=== PATIENT | female | born 1935 | race Caucasian/White ===

== ENCOUNTER 2016-05-07 | Outpatient (CLI) | payer MEDICARE, OTHER | END 2016-05-07 17:35 | disposition EMS.NT ==

== ENCOUNTER 2017-06-26 10:57 | Outpatient (CLI) | payer MEDICARE, OTHER | END 2017-06-26 10:58 | disposition home or self-care (01) | LOC: DI 10:57 | PROVIDERS: ATTEND Physician Assistant | DX: R01.1 Cardiac murmur, unspecified (principal) | CPT/HCPCS: 93306 ==

== ENCOUNTER 2018-04-18 10:28 | Outpatient (CLI) | payer MEDICARE, OTHER ==
--- NOTE | 2018-05-02 08:54 | Mammography Report ---
Reason: SCREENING MAMMO Procedure Date: 04/18/2018 Accession Number: [id number] / [id number] Procedure: BERT - Screening Mammo w/Steve CPT Code: FULL RESULT: EXAM: Screening Mammo w/Steve DATE: 04/18/2018 11:12 AM CLINICAL HISTORY: Screening encounter. Personal history of left breast cancer status post lumpectomy and radiation in 2001. TECHNIQUE: Bilateral CC and MLO views were obtained. COMPARISON: None were made available. FINDINGS: The breasts demonstrate heterogeneously dense fibroglandular parenchyma bilaterally. There are postsurgical and posttreatment changes in the left breast. No suspicious masses, clustered microcalcifications, or regions of architectural distortion are identified. IMPRESSION: Benign findings RECOMMENDATION: Routine annual screening unless otherwise clinically indicated. BIRADS CATEGORY 2: Benign findings STANDARD QUALIFYING STATEMENTS: 1. This examination was not reviewed with the aid of Computer-Aided Detection (CAD). 2. A negative or benign imaging report should not preclude biopsy if clinically suspicious findings are present. 3. Dense breasts may obscure an underlying neoplasm. 4. This examination was reviewed with the aid of 3D breast imaging (tomosynthesis).
== END 2018-04-18 10:29 | disposition home or self-care (01) ==
LOC: DI 10:28
PROVIDERS: ATTEND Physician Assistant
DX: Z12.31 Encounter for screening mammogram for malignant neoplasm of breast (principal); Z85.3 Personal history of malignant neoplasm of breast
CPT/HCPCS: 77063; 77067

== ENCOUNTER 2018-10-11 13:51 | Outpatient (CLI) | payer MEDICARE, OTHER ==
--- NOTE | 2018-10-12 15:17 | XRAY Report ---
Reason: ACUTE BRONCHITIS, UNSPECIFIED Procedure Date: 10/12/2018 Accession Number: [id number] / [id number] Procedure: XR - Chest 2 View X-Ray CPT Code: 33784 FULL RESULT: EXAM: CHEST RADIOGRAPHY EXAM DATE: 10/12/2018 02:23 PM. CLINICAL HISTORY: Coughing and wheezing for 2 weeks, bronchitis COMPARISON: 09/04/2014 10:31 AM CHEST W/ 01/22/2013 2:38 PM. TECHNIQUE: 2 views. FINDINGS: Lungs/Pleura: Calcified granuloma in the right lower lobe. Probable atelectasis at the left lung base. Lungs are otherwise clear. Mediastinum: Heart and mediastinal contours are unremarkable. Other: Postsurgical changes in the left breast. IMPRESSION: Probable atelectasis at the left lung base, otherwise no active disease seen in the chest. RADIA
== END 2018-10-11 13:52 | disposition home or self-care (01) ==
LOC: DI 13:51
PROVIDERS: ATTEND Nurse Practitioner Family
DX: J20.9 Acute bronchitis, unspecified (principal)
CPT/HCPCS: 71046

== ENCOUNTER 2018-11-14 13:13 | Outpatient (CLI) | payer MEDICARE, OTHER ==
--- NOTE | 2018-11-15 10:12 | XRAY Report ---
Reason: ACUTE BRONCHITIS Procedure Date: 11/14/2018 Accession Number: [id number] / [id number] Procedure: XRS - Chest 2 View X-Ray CPT Code: 83722 FULL RESULT: EXAM: CHEST RADIOGRAPHY EXAM DATE: 11/14/2018 01:30 PM. CLINICAL HISTORY: ACUTE BRONCHITIS. COMPARISON: CHEST 2 VIEW 10/12/2018 2:12 PM. TECHNIQUE: 2 views. FINDINGS: Lungs/Pleura: No focal opacities evident. No pleural effusion. No pneumothorax. Normal volumes. Mediastinum: Heart and mediastinal contours are unremarkable. Other: Previous left breast surgery. IMPRESSION: No acute process seen in the chest. RADIA
== END 2018-11-14 13:14 | disposition home or self-care (01) ==
LOC: DI.S 13:13
PROVIDERS: ATTEND Nurse Practitioner Family
DX: J20.9 Acute bronchitis, unspecified (principal)
CPT/HCPCS: 71046

== ENCOUNTER 2020-02-05 12:32 | Outpatient (CLI) | payer MEDICARE, OTHER ==
[2020-02-05] MEDS ORDERED: REGADENOSON 0.4 MG/5 ML SYRINGE IVP ONE ×2 (14:44→16:17)
[2020-02-05] MEDS ORDERED: AMINOPHYLLINE 500 MG/20 ML VIAL ONE (14:45)
--- NOTE | 2020-02-05 15:55 | CARDIAC PROCEDURE NOTE ---
DATE OF SERVICE: 02/05/2020 Physician: Milla May MD INDICATION: Left bundle branch block. CARDIAC RISK FACTORS 1. Advanced age. 2. Family history of heart disease. DESCRIPTION OF PROCEDURE: After signing informed consent, the patient underwent a Lexiscan pharmaceutical stress test with nuclear myocardial perfusion imaging. RESTING HEART RATE: 63. PEAK HEART RATE: 94. RESTING BLOOD PRESSURE: 148/71. PEAK BLOOD PRESSURE: 173/84. Lexiscan was infused per protocol. The patient developed very mild flushing, mild shortness of breath, and trivial chest pain, briefly she said. There was no nausea. Oxygen saturation was 97% on room air throughout the test. RESTING EKG: Normal sinus rhythm, left bundle branch block. EKG AT PEAK: Cannot comment on ST segment changes when EKG shows left bundle branch block. SUMMARY: 1. Abnormal resting EKG showing left bundle branch block. 2. ST segment and T-wave changes cannot be used for evaluating for ischemic changes in the presence of LBBB. 3. Nuclear images showed: Moderate sized, moderately severe, fixed perfusion defect in the septum, suspicious for myocardial infarction. There were no significant reversible perfusion defects to suggest myocardial ischemia. The LVEF is calculated at 70%. FINAL IMPRESSION: 1. Old anteroseptal DC, with preserved LVEF. cc: MADELIN Shelton MD TD: 02/05/2020 14:58 MTDD
--- NOTE | 2020-02-05 16:55 | Nuclear Medicine Report ---
PROCEDURE: Rest and exercise myocardial perfusion SPECT with gated imaging and ejection fraction INDICATIONS: LT BUNDLE BRANCH BLOCK RADIOPHARMACEUTICAL: 8.4 mCi Tc-99m Myoview IV at rest and 22.7 mCi Tc-99m Myoview IV at peak exerci se. Raz-gmi-[id number] was performed. TECHNIQUE: Radiopharmaceutical was injected at peak stress test, and also at rest. SPECT images wer e obtained. SPECT myocardial perfusion images were displayed in short axis, horizontal long axis, an d vertical long axis views. Gated images were reviewed using AutoQUANT software. COMPARISON: None available. FINDINGS: Raw data: There is good myocardial labeling by radiotracer. No significant motion artifacts. Lung- to-heart ratio is (normal is less than 0.38 for tetrafosmin tracer). Left ventricle function: Gated images demonstrate normal left ventricle wall thickening. No segment al wall motion abnormality. No transient ischemic dilation. The left ventricle resting end-diastolic volume is normal. Left ventricle stress ejection fraction is greater than 70%; normal values are ab ove 45%. Myocardial perfusion: There is a moderate size, moderately severe, fixed perfusion defect in the sep sandi, suspicious for myocardial infarction. There is no significant reversible perfusion defect to sug gest myocardial ischemia. IMPRESSION: 1. Probably abnormal myocardial perfusion images. There is a moderate size, moderately severe, fixed perfusion defect in the septum, suspicious for myocardial infarction. 2. No reversible perfusion defect to suggest myocardial ischemia. 3. Normal left ventricular volume and systolic function. PQRS ATTESTATIONS: Measure 322 - Is this imaging test primarily performed on a low-risk surgery patient for preoperative evaluation within 30 days preceding their low-risk non-cardiac surgery? Low-risk surgery is defined as cardiac or myocardial infarction less than 1%, including (but not limited to) endoscopic pr ocedures, superficial procedures, cataract surgery, and excisional breast surgery: Answer: No Measure 323 - Is this imaging test performed primarily for the monitoring of an asymptomatic patient who had percutaneous coronary intervention on the visit date or within 2 years of the visit date? An swer: No Measure 324 - Is this imaging test performed primarily for the initial detection and risk assessment on an asymptomatic, low coronary heart disease patient? Low CHD risk definition = clinicians should consider the maximum number of available patient factors used to estimate risk based on Parker (A TP III criteria), typically age, gender, diabetes, smoking status, and use of blood pressure medicati on, and integrate age appropriate estimates for missing elements, such as LDL or standard blood press ure. Answer: No Reviewed by: Edith Arroyo MD on 02/05/2020 4:53 PM PDT Approved by: Edith Arroyo MD on 02/05/2020 4:53 PM PDT Station ID: [id number]
== END 2020-02-05 12:33 | disposition home or self-care (01) ==
LOC: DI 12:32
PROVIDERS: ATTEND Nurse Practitioner Family
DX: I44.7 Left bundle-branch block, unspecified (principal); I25.2 Old myocardial infarction
CPT/HCPCS: 78452; 93017; A9500; J2785

== ENCOUNTER 2020-11-16 14:57 | Outpatient (CLI) | payer MEDICARE, OTHER ==
[2020-11-16 20:22] LABS: ALBUMIN 4.2 g/dL (3.2-5.5); ALBUMIN/GLOBULIN RATIO 1.5 (1.0-2.2); CALCIUM 8.7 mg/dL (8.5-10.3); CREATININE 0.6 mg/dL (0.4-1.0)
== END 2020-11-16 14:58 | disposition home or self-care (01) ==
LOC: LAB.S 14:57
PROVIDERS: ATTEND Nurse Practitioner Family
DX: R19.7 Diarrhea, unspecified (principal)
CPT/HCPCS: 36415; 80053; 82150; 83690

== ENCOUNTER 2021-01-12 14:55 | Outpatient (CLI) | payer MEDICARE, OTHER ==
--- NOTE | 2021-01-13 11:48 | Mammography Report ---
BILATERAL DIGITAL SCREENING MAMMOGRAM 3D/2D WITH EXAGGERATED CC: 01/12/2021 CLINICAL: Routine screening. Personal history of left breast cancer. Comparison is made to exam dated: 04/18/2018 mammogram - [facility]. The tissue of both breasts is heterogeneously dense. This may lower the sensitivity of mammography. There is an oval equal density focal asymmetry with an indistinct margin in the left breast at 12 o'c lock middle depth. No other significant masses, calcifications, or other findings are seen in either breast. IMPRESSION: INCOMPLETE: NEEDS ADDITIONAL IMAGING EVALUATION The oval equal density focal asymmetry in the left breast is indeterminate. Mediolateral and spot co mpression views as well as additional views with possible ultrasound are recommended. This exam was interpreted at Station ID: [id number]. NOTE: For mammograms, a report in lay terms will be sent to the patient. Approximately 15% of breast malignancies will not be visualized mammographically. In the management of a palpable breast mass, a negative mammogram must not discourage biopsy of a clinically suspicious lesion. Electronically Signed By: Wilner Encinas M.D. ddsandra/penkami:01/12/2021 17:40:35 ACR BI-RADS Category 0: Incomplete 3340F PARENCHYMAL PATTERN: (D) - The breast(s) demonstrate(s) heterogeneously dense fibroglandular thais adam. BI-RADS CATEGORY: (0) - 0 Mammo and [place] [id number] Immediate follow-up LATERALITY: (B)
== END 2021-01-12 14:56 | disposition home or self-care (01) ==
LOC: DI.S 14:55
PROVIDERS: ATTEND Nurse Practitioner Family
DX: Z12.31 Encounter for screening mammogram for malignant neoplasm of breast (principal); Z08 Encounter for follow-up examination after completed treatment for malignant neoplasm; Z85.3 Personal history of malignant neoplasm of breast; N64.89 Other specified disorders of breast

== ENCOUNTER 2021-02-16 10:06 | Outpatient (CLI) | payer MEDICARE, OTHER ==
--- NOTE | 2021-02-17 09:04 | Mammography Report ---
UNILATERAL LEFT DIGITAL DIAGNOSTIC MAMMOGRAM 3D/2D: 02/16/2021 CLINICAL: Patient returns today to evaluate a focal asymmetry in the left breast. Comparison is made to exams dated: 01/12/2021 mammogram and 04/18/2018 mammogram - [facility]. The tissue of left breast is heterogeneously dense. This may lower the sensitivity of gordy mography. There is an oval equal density focal asymmetry with an indistinct margin in the left breast at 12 o'c lock middle depth. This is less prominent on additional views. No other significant masses or calcifications are seen in the breast. IMPRESSION: INCOMPLETE: NEEDS ADDITIONAL IMAGING EVALUATION The oval equal density focal asymmetry in the left breast is indeterminate. A targeted ultrasound is recommended and will immediately follow. This exam was interpreted at Station ID: [id number]. NOTE: For mammograms, a report in lay terms will be sent to the patient. Approximately 15% of breast malignancies will not be visualized mammographically. In the management of a palpable breast mass, a negative mammogram must not discourage biopsy of a clinically suspicious lesion. Electronically Signed By: Main Chaves M.D. slc/:02/16/2021 11:44:36 ACR BI-RADS Category 0: Incomplete 3340F PARENCHYMAL PATTERN: (D) - The breast(s) demonstrate(s) heterogeneously dense fibroglandular thais adam. BI-RADS CATEGORY: (0) - 0 Ultrasound [id number] Immediate follow-up LATERALITY: (B)
--- NOTE | 2021-02-17 09:04 | Ultrasound Report ---
LIMITED ULTRASOUND OF LEFT BREAST AND AXILLA: 02/16/2021 CLINICAL: Patient returns today to evaluate a focal asymmetry in the left breast. Comparison is made to exams dated: 02/16/2021 mammogram, 01/12/2021 mammogram, and 04/18/2018 mammogra m - [facility]. Color flow and real-time ultrasound of the left breast 12 o'clock, and axilla regions were performed. Bustamante scale images of the real-time examination were reviewed. There is a benign 0.9 cm area of fibroglandular tissue in the left breast at 12 o'clock middle depth. This correlates with mammography findings. Color flow imaging demonstrates that there is no vascul arity present. Adjacent lumpectomy scar and dense calcifications. No significant abnormalities were seen sonographically in the left axilla. IMPRESSION: BENIGN There is no sonographic evidence of malignancy. Small area of fibroglandular tissue in the left breast adjacent to the lumpectomy scar is benign. A 1 year screening mammogram is recommended. Exam findings were conveyed to the patient. This exam was interpreted at Station ID: [id number]. Electronically Signed By: Main Chaves M.D. slc/:02/16/2021 13:12:42 Ultrasound BI-RADS: 2 Benign BI-RADS CATEGORY: (2) - 2 RECOMMENDATION: (ANNUAL) - Recommend routine annual screening mammography. [id number] 1 year screening LATERALITY: (B)
== END 2021-02-16 10:07 | disposition home or self-care (01) ==
LOC: DI 10:06
PROVIDERS: ATTEND Nurse Practitioner Family
DX: R92.8 Other abnormal and inconclusive findings on diagnostic imaging of breast (principal)

== ENCOUNTER 2021-04-12 13:44 | Outpatient (CLI) | payer MEDICARE, OTHER ==
--- NOTE | 2021-04-12 16:53 | XRAY Report ---
PROCEDURE: Ribs w/PA Chest LT INDICATIONS: RIB PAIN TECHNIQUE: 2 views of the left ribs were acquired, along with a single view chest. COMPARISON: Chest x-ray dated 10/12/2018. FINDINGS: Surgical changes and devices: Surgical clip project over the left lower chest. Bones and chest wall: No fractures or dislocations. No suspicious bony lesions. Overlying soft tis sues appear unremarkable. Lungs and pleura: No pleural effusions or pneumothorax. Lungs appear clear. Mediastinum: Mediastinal contours appear normal. Heart size is normal. IMPRESSION: No acute fracture. No osseous lesion. If symptoms and/or clinical suspicion for pathology continue, f urther assessment with repeat plain films, or advanced imaging (e.g., CT, MRI, or bone scan) is recom mended for further assessment. Reviewed by: Pollo Romano MD on 04/12/2021 4:52 PM PST Approved by: Pollo Romano MD on 04/12/2021 4:52 PM PST Station ID: [id number]
== END 2021-04-12 13:45 | disposition home or self-care (01) ==
LOC: DI.S 13:44
PROVIDERS: ATTEND Nurse Practitioner Family
DX: R07.81 Pleurodynia (principal)

== ENCOUNTER 2021-08-25 07:00 | Outpatient (CLI) | payer MEDICARE, OTHER ==
--- NOTE | 2021-08-25 15:40 | XRAY Report ---
PROCEDURE: Chest 2 View X-Ray INDICATIONS: COUGH TECHNIQUE: 2 view(s) of the chest. COMPARISON: CXR 04/12/2021, 11/14/2018. FINDINGS: Surgical changes and devices: Right-sided port with the catheter tip projecting at the cavoatrial rubén ction. Left breast clips. Lungs and pleura: No pleural effusions or pneumothorax. Lungs are unchanged. Mediastinum: Mediastinal contours are normal. Heart size is normal. Bones and chest wall: No suspicious bony abnormalities. Soft tissues appear unremarkable. IMPRESSION: No acute cardiopulmonary abnormality. Reviewed by: Main Chaves MD on 08/25/2021 3:39 PM PDT Approved by: Main Chaves MD on 08/25/2021 3:39 PM PDT Station ID: [id number]
[2021-08-25 20:08] LABS: BASOPHILS % (AUTO) 0.7 %; EOSINOPHILS # (AUTO) 1.5 10^3/uL (0.0-0.7); HCT - HEMATOCRIT 31.3 % (37.0-47.0); HGB - HEMOGLOBIN 10.8 g/dL (12.0-16.0); LYMPHOCYTES # (AUTO) 0.4 10^3/uL (1.5-3.5); LYMPHOCYTES % (AUTO) 9.1 %; MEAN CORPUSCULAR HEMOGLOBIN 34.8 pg (27.0-31.0); MEAN CORPUSCULAR HGB CONC 34.5 g/dL (32.0-36.0); MEAN PLATELET VOLUME 10.5 fL (7.9-10.8); MONOCYTES # (AUTO) 0.6 10^3/uL (0.0-1.0); MONOCYTES % (AUTO) 14.5 %; NEUTROPHILS # (AUTO) 1.6 10^3/uL (1.5-6.6); PLT - PLATELET COUNT 253 10^3/uL (130-450); RED CELL DISTRIBUTION WIDTH 13.6 % (12.0-15.0); WHITE BLOOD COUNT 4.1 x10^3/uL (4.8-10.8)
[2021-08-25 20:16] LABS: ALBUMIN 3.4 g/dL (3.2-5.5); ALBUMIN/GLOBULIN RATIO 1.3 (1.0-2.2); BILIRUBIN,TOTAL 0.6 mg/dL (0.2-1.0); CALCIUM 8.5 mg/dL (8.5-10.3); CREATININE 0.7 mg/dL (0.4-1.0); POTASSIUM 4.1 mmol/L (3.5-5.0)
[2021-08-25 20:50] LABS: PLATELET ESTIMATE, MANUAL NORMAL (130-450,000) (NORMAL); PLATELET MORPHOLOGY NORMAL APPEARANCE (NORMAL); RBC MORPHOLOGY (MULTIPLE) NORMAL APPEARANCE (NORMAL)
[2021-08-25 20:51] LABS: DIFFERENTIAL COMMENT MANUAL=AUTO DIFF
== END 2021-08-25 23:59 | disposition home or self-care (01) ==
LOC: DI.S 07:00
PROVIDERS: ATTEND Nurse Practitioner Family
DX: R05.9 Cough, unspecified (principal); R06.09 Other forms of dyspnea
CPT/HCPCS: 36415; 80053; 84443; 85025

== ENCOUNTER 2022-11-19 13:30 | Emergency (ER) | payer MEDICARE, OTHER ==
[2022-11-19 13:40] VITALS: BP 140/80; O2SAT 94
[2022-11-19] MEDS ORDERED: TETANUS/DIPHTHERIA/PERTUSSIS 0.5 ML SYRINGE IM ONE (13:49)
--- NOTE | 2022-11-19 13:51 | ED Physician Documentation ---
History of Present Illness - Stated complaint Stated Complaint: RT ARM INJ/FALL - Chief complaint Chief Complaint: Laceration - History obtained from History obtained from: Patient - History of Present Illness Timing: How many hours ago (1) Pain level max: 0 Pain level now: 0 - Additonal information Additional information: Patient is an 87-year-old female who presents to the emergency department stating she was [place] plants in an alley way when she tripped and fell, causing a skin tear to the right elbow. No other injuries. No head injury. No neck or back pain. Nothing makes it better or worse. Unknown last tetanus shot. Review of Systems Constitutional: denies: Fever, Chills GI: denies: Vomiting, Diarrhea Skin: denies: Rash Musculoskeletal: denies: Neck pain, Back pain Neurologic: denies: Headache, Head injury PD PAST MEDICAL HISTORY - Past Medical History Cardiovascular: None Endocrine/Autoimmune: None GI: None : Incontinence HEENT: None Psych: None Musculoskeletal: Osteoarthritis Derm: None - Present Medications Home Medications: Ambulatory Orders Medication Instructions Recorded Confirmed Albuterol Sulfate [Albuterol 1 - 2 puffs INH Q4HR PRN 10/28/13 10/28/13 Sulfate Hfa] Citalopram Hydrobromide 1 tab PO DAILY 10/28/13 10/28/13 [Citalopram HBr] Estradiol [Estrace] 1 applic VG DAILY 10/28/13 10/28/13 LORazepam [Lorazepam] 0.25 - 0.5 mg PO QPM 10/28/13 10/28/13 - Allergies Allergies/Adverse Reactions: Allergies Allergy/AdvReac Type Severity Reaction Status Date / Time No Known Drug Allergies Allergy Verified 11/19/22 13:34 - Social History Smoking Status: Smoker current status unk PD ED PE NORMAL - Vitals Vital signs reviewed: Yes - General General: Alert and oriented X 3, No acute distress - Derm Derm: Warm and dry - Extremities Extremities: Other (Skin tear to the right elbow, and multiple flaps, approximately 4 x 8 cm in length.) - Neuro Neuro: Alert and oriented X 3 - Psych Psych: Normal mood, Normal affect Results - Vitals Vitals: Vital Signs - 24 hr 11/19/22 13:34 Temperature 36.5 C Heart Rate 80 Respiratory 16 Rate Blood Pressure 140/80 H O2 Saturation 94 Oxygen O2 Source Room air PD Medical Decision Making - ED course Complexity details: considered differential, d/w patient ED course: Patient with a right elbow skin tear. The skin is not thick enough to hold sutures. Therefore the skin was reapproximated manually and Mepitel was placed over the wound. Recommend that she leave the Mepitel in place until she sees her doctor in 7 to 10 days. Kerlix was then applied over the top of the Mepitel. Tdap given. Patient counseled regarding signs and symptoms for which I believe and urgent re-evaluation would be necessary. Patient with good understanding of and agreement to plan and is comfortable going home at this time This document was made in part using voice recognition software. While efforts are made to proofread this document, sound alike and grammatical errors may occur. Departure - Departure Disposition: 01 Home, Self Care Clinical Impression: Skin tear Condition: Good Instructions: ED Avulsion Dermal Follow-Up: Jean-Claude Gracia MD [Primary Care Provider] - Comments: Please follow-up with your doctor in about 7 to 10 days. The Mepitel can stay in place until that time, you can change the outer dressing. Please keep the wound clean. Return if you notice redness, swelling or drainage from the wound. Forms: PCP List
== END 2022-11-19 14:08 | disposition home or self-care (01) ==
LOC: ED 13:30
DX: S50.901A Unspecified superficial injury of right elbow, initial encounter (principal); W01.0XXA Fall on same level from slipping, tripping and stumbling without subsequent striking against object, initial encounter; Y93.H2 Activity, gardening and landscaping; Z23 Encounter for immunization; Z71.85 Encounter for immunization safety counseling
CPT/HCPCS: 90471; 99283

== ENCOUNTER 2023-09-05 08:00 | Outpatient (CLI) | payer MEDICARE, OTHER ==
--- NOTE | 2023-09-06 01:27 | XRAY Report ---
PROCEDURE: Chest 2V INDICATIONS: ACUTE COUGH TECHNIQUE: 2 views of the chest were acquired. COMPARISON: Chest radiograph 08/25/2021. FINDINGS: Surgical changes and devices: Interval removal of right chest wall port catheter. Left breast surgic al clips. Lungs and pleura: No pleural effusions or pneumothorax. Lungs are clear. Mediastinum: Mediastinal contours appear normal. Heart size is normal. Bones and chest wall: No suspicious bony lesions. Overlying soft tissues appear unremarkable. IMPRESSION: No acute cardiopulmonary process. Reviewed by: Blaire Sheppard MD, PhD on 09/06/2023 12:26 AM FABIANA Approved by: Blaire Sheppard MD, PhD on 09/06/2023 12:26 AM FABIANA Station ID: [id number]
== END 2023-09-05 23:59 | disposition home or self-care (01) ==
LOC: DI.S 08:00
PROVIDERS: ATTEND Registered Nurse
DX: R05.1 Acute cough (principal)

== ENCOUNTER 2023-09-25 13:22 | Outpatient (CLI) | payer MEDICARE, OTHER ==
--- NOTE | 2023-09-25 15:33 | XRAY Report ---
PROCEDURE: Chest 2V INDICATIONS: PNA TECHNIQUE: 2 views of the chest were acquired. COMPARISON: 09/05/2023 FINDINGS: Surgical changes and devices: Left chest wall clips Lungs and pleura: Blurring of the left heart border, similar to prior. No drainable pleural effusion . Mediastinum: Cardiac mediastinal contours are unchanged Bones and chest wall: Possible right distal clavicle deformity. IMPRESSION: Unchanged blurring of the left heart border may represent chronic atelectasis/airspace disease in the lingula. Consider future imaging surveillance to assess for resolution. Reviewed by: Leif Reyes MD on 09/25/2023 3:31 PM PDT Approved by: Leif Reyes MD on 09/25/2023 3:31 PM PDT Station ID: [id number]
== END 2023-09-25 13:23 | disposition home or self-care (01) ==
LOC: DI.S 13:22
PROVIDERS: ATTEND Registered Nurse
DX: J18.9 Pneumonia, unspecified organism (principal)